=== PATIENT | male | born 1960 | race Two or more races ===

== ENCOUNTER 2017-07-28 15:45 | Emergency (ER) | payer OTHER ==
[~2017-07-28] VITALS: Ht 180.3 cm; Wt 108.9 kg
[2017-07-28 16:07] VITALS: BP 142/68
== END 2017-07-28 18:13 | disposition home or self-care (01) ==
LOC: ER 15:47
DX: R05 Cough (principal); Z87.442 Personal history of urinary calculi; Z88.8 Allergy status to other drugs, medicaments and biological substances
CPT/HCPCS: 71010-TC; A4606; Z7610

== ENCOUNTER 2021-08-25 12:12 | Emergency (ER) | payer OTHER ==
[~2021-08-25] VITALS: Ht 180.3 cm; Wt 113.4 kg
--- NOTE | 2021-08-25 12:30 | NUR ---
BIBS FOR C/O COUGH AND RUNNY NOSE X2 DAYS. DENIES SOB. RESPIRATION REGULAR AND UNLABORED. OXYGEN SATURATION IN ROOM AIR IS AT 98%. WILL CONTINUE TO MONITOR THE PATIENT.
--- NOTE | 2021-08-25 12:31 | NUR ---
DR CHRISTINE AT THE BEDSIDE
--- NOTE | 2021-08-25 12:40 | NUR ---
Naima watson in ED - 08/25/21 at 1244 by [facility]EWART URINE COLLECTED AND SENT TO LAB
--- NOTE | 2021-08-25 12:40 | NUR ---
COVID SWAB DONE AND SENT TO LAB
[2021-08-25 12:48] VITALS: BP 130/82
--- NOTE | 2021-08-25 12:48 | NUR ---
Patient discharged to home in stable condition. Written and verbal after care instructions given. Patient verbalizes understanding of instruction.
== END 2021-08-25 12:48 | disposition home or self-care (01) ==
LOC: ER 12:14
DX: J06.9 Acute upper respiratory infection, unspecified (principal); Z20.822 Contact with and (suspected) exposure to COVID-19
CPT/HCPCS: 87426; 99283; C9803